=== PATIENT | female | born 2000 | race African-American/Black ===

== ENCOUNTER 2023-07-07 13:30 | Emergency (ER) | payer SELFPAY ==
[~2023-07-07] VITALS: Ht 160 cm; Wt 72.7 kg
[2023-07-07 13:40] VITALS: BP 116/69; PULSE 76; TEMP 98.5
[2023-07-07 14:23] LABS: PH 5.5 (5.0-8.5); URINE APPEARANCE CLEAR (CLEAR/HAZY); URINE BLOOD NEGATIVE (NEGATIVE); URINE COLOR YELLOW (YELLOW); URINE GLUCOSE NEGATIVE (NEGATIVE); URINE KETONE TRACE (NEGATIVE); URINE NITRATE NEGATIVE (NEGATIVE); URINE PROTEIN(semi-quant) NEGATIVE (NEGATIVE)
[2023-07-07 14:36] LABS: URINE BACTERIA MANY /hpf (NONE SEEN); URINE RBC 0-2 /hpf (0-2)
[2023-07-07 14:50] LABS: COLLECTION METHOD CLEAN CATCH
[2023-07-07] MEDS ORDERED: cefTRIAXone 1 G,Lidocaine PF 1% 2.1 ML IM ONE (15:30)
[2023-07-07] MEDS ORDERED: CEPHALEXIN500 M1 PO (16:02)
== END 2023-07-07 16:10 | disposition home or self-care (01) ==
LOC: COL.ER 13:30
PROVIDERS: Physician Assistant
DX: N39.0 Urinary tract infection, site not specified (principal)
CPT/HCPCS: J0696